=== PATIENT | female | born 1985 | race African-American/Black ===

== ENCOUNTER 2018-04-05 10:24 | Emergency (ER) | payer OTHER ==
[~2018-04-05] VITALS: Ht 180.3 cm; Wt 79.4 kg
[~2018-04-05 10:24] MED LIST: AMOXICILLIN500 M1 PO; KENALOG,ARISTOC15 G2 TP; MOTRIN IB200 MG PO; MOTRIN800 MG PO; Motrin PO; NAPROSYN500 MG PO; NATALCARE RX1 TABLET PO; NORCO 5/3251 TABLET PO; Percocet 5/325,Endoc PO; TRI-ESTARYLLA1 EACH PO; TRI-PREVIFEM1 EACH PO
[2018-04-05 11:43] VITALS: BP 104/72
== END 2018-04-05 11:43 | disposition home or self-care (01) ==
LOC: EME 10:24
DX: K08.89 Other specified disorders of teeth and supporting structures (principal); G89.18 Other acute postprocedural pain; Z98.818 Other dental procedure status; F17.200 Nicotine dependence, unspecified, uncomplicated
CPT/HCPCS: 99281; 99284; J1885